=== PATIENT | female | born 1965 | race Caucasian/White ===

== ENCOUNTER 2020-08-23 15:09 | Emergency (ER) | payer OTHER, SELFPAY ==
[2020-08-23 15:21] VITALS: BP 135/82; PULSE 81; RESP 16; TEMP 37.1; O2SAT 100
[2020-08-23 15:33] VITALS: BP 135/82; PULSE 81; RESP 16; TEMP 37.1; O2SAT 100
--- NOTE | 2020-08-23 15:56 | ED.WOUNDLAC ---
HPI - Wound/Laceration General Chief Complaint: Wound/Laceration Stated Complaint: blister on heel of foot Time Seen by Provider: 08/23/20 15:50 Source: patient and RN notes reviewed Mode of arrival: ambulatory Limitations: no limitations History of Present Illness HPI narrative: 54-year-old female presents with concern for blisters on the back of her ankles. Reports approximately 10 days ago she wore tight shoes at a wedding and had a small pink blister on the back of both of her heels. Reports later that week the areas got larger, redder, more painful despite her wearing backless shoes and no socks to avoid irritating the blisters. Reports surrounding redness, pain subsequently. She denies general malaise, fever, drainage from the area. Reports has been using Neosporin. Related Data Home Medications Medication Instructions Recorded Confirmed levothyroxine [Euthyrox] 100 mcg PO DAILY 08/23/20 08/23/20 linaclotide [Linzess] 290 mcg PO DAILY 08/23/20 08/23/20 omeprazole 40 mg PO DAILY 08/23/20 08/23/20 Allergies Allergy/AdvReac Type Severity Reaction Status Date / Time erythromycin base Allergy Unknown Itching Verified 08/23/20 15:32 and wheezing propoxyphene Allergy Unknown swelling Verified 08/23/20 15:32 soap Allergy Unknown Rash Verified 08/23/20 15:32 oxycodone AdvReac Unknown NAUSEA Verified 08/23/20 15:32 tramadol AdvReac Unknown stomach Verified 08/23/20 15:32 pain Review of Systems Review of Systems: Narrative: CONSTITUTIONAL: Denies malaise, chills, sweats, or fever. CARDIOVASCULAR: Denies chest pain, palpitations, or edema. RESPIRATORY: Denies cough or dyspnea. SKIN: Reports wound on the back of both heels that are nonhealing, surrounded by redness, warmth, pain MUSCULOSKELETAL: Denies musculoskeletal pain All systems reviewed & are unremarkable except as noted in HPI and below PMFSH Social History Social History Alcohol intake: never Comments At time of signature, agree with nursing past medical, surgical, social and family history. There is no relevant family history pertinent to the presenting complaint Exam Narrative: Exam Narrative: GENERAL: Well-appearing, well-nourished, and in no acute distress. HEAD: Normocephalic, atraumatic. EYES: PERRLA, conjunctivae clear, and EOMI. ENT: Mucous membranes moist. NECK: Supple. No lymphadenopathy CHEST: Clear to auscultation. No respiratory distress. HEART: Regular rate and rhythm. SKIN: Warm, dry. 2 cm diameter wounds noted to bilateral heels with a red tissue bed surrounded by mild erythema, induration NEURO: Alert and oriented x3. PSYCH: Normal mood and affect Course Course Emergency Course: Discussed with patient about not using Neosporin due to her allergy to erythromycin Patient is aware of diagnosis, understands and agrees to treatment plan. Anticipatory guidance given. Patient agrees to follow-up as directed and is aware of reasons to seek care at the emergency department. Portions of this record may have been created with voice recognition software Vital Signs Vital signs: Vital Signs Temperature 98.7 F 08/23/20 15:21 Pulse Rate 81 08/23/20 15:21 Respiratory Rate 16 08/23/20 15:21 Blood Pressure 135/82 08/23/20 15:21 Pulse Oximetry 100 08/23/20 15:21 Temperature 98.7 F 08/23/20 15:33 Pulse Rate 81 08/23/20 15:33 Respiratory Rate 16 08/23/20 15:33 Blood Pressure 135/82 08/23/20 15:33 Pulse Oximetry 100 08/23/20 15:33 Reviewed. MDM - Wound/Laceration MDM Narrative Medical decision making narrative: Exam findings show no acute concerns or changes; patient is non-toxic appearing and is in no distress. Patient is appropriate for outpatient treatment and follow-up. Differential Diagnosis Differential diagnosis: Likely laceration, abscess, avulsion of skin and other (Cellulitis) Critical Care Time Critical Care Time Critical Care Time: No Discharge Plan Discharge Clinical Imp
== END 2020-08-23 16:07 | disposition home or self-care (01) ==
PROVIDERS: Emergency Provider Nurse Practitioner; PCP Nurse Practitioner Family
DX: L03.116 Cellulitis of left lower limb (principal); L03.115 Cellulitis of right lower limb; K21.9 Gastro-esophageal reflux disease without esophagitis; E03.9 Hypothyroidism, unspecified
CPT/HCPCS: 99213; G0463